=== PATIENT | female | born 1955 ===

== ENCOUNTER 2022-07-25 18:53 | Emergency (ER) | payer MEDICARE, OTHER ==
[~2022-07-25] VITALS: Ht 165.1 cm; Wt 65.8 kg
--- NOTE | 2022-07-25 19:11 | NUR ---
RECEIVING REPORT: 1) c/o of sudden onset of left back pain radiating to the front groin. 2) Seen in [facility]: (i) however, not sure if patient had C/Scan (ii) was informed by MD that patient has probably kidney stones 3) Has been having pain passing urine 4) Was also seen by sole skiver - NAD 5) Patient receives once a week insulin 6) Ambulance: was given Fentalyn and antimetic 7) Pain score reduced from 10 to 0 on arrival. 8) Vitals: BP 149/88, Sat 97% on RA, T98.2, R18 9) PLAN: (i) check labs for kidney function (ii) C/Scan with contrast (iii) Claims no shellfish nor sea food allergies (iv) Claims to not have had contrast before 10) Unable to pass unrine when offered urine cup
[2022-07-25] MEDS ORDERED: METOCLOPRAMIDE HCL 10 MG/2 ML VIAL IV ONE (19:30)
[2022-07-25] MEDS ORDERED: diphenhydrAMINE 50 MG/1 ML VIAL IV ONE (19:30)
[2022-07-25] MEDS ORDERED: diphenhydrAMINE 50 MG/1 ML VIAL ONE (19:32)
[2022-07-25] MEDS ORDERED: METOCLOPRAMIDE HCL 10 MG/2 ML VIAL ONE (19:32)
[2022-07-25 19:33] LABS: HEMATOCRIT 39.6 % (31.2-41.9); MEAN CORPUSCULAR HEMOGLOBIN 29.1 uug (24.7-32.8); MEAN CORPUSCULAR VOLUME 87.4 fL (75.5-95.3); PLATELET COUNT (AUTO) 287 K/uL (179-408)
[2022-07-25 19:45] LABS: CREATININE 0.8 mg/dL (0.6-1.3)
[2022-07-25 19:50] LABS: BILIRUBIN,DIRECT 0.1 mg/dL (0.0-0.2); BILIRUBIN,TOTAL 0.5 mg/dL (0.2-1.0); TOTAL PROTEIN, SERUM 7.7 g/dL (6.4-8.2)
[2022-07-25 20:09] LABS: *BILIRUBIN,URIN NEGATIVE (NEGATIVE); *CLARITY,URINE CLEAR (CLEAR); *COLOR,URINE YELLOW (YELLOW); *KETONES,URINE NEGATIVE (NEGATIVE); *UROBILINOGEN,URINE 0.2 E.U./dl (NORMAL); LEUKOCYTE ESTERASE ,URINE NEGATIVE (NEGATIVE); NITRITE, URINE NEGATIVE (NEGATIVE); UGLUCOSE NEGATIVE (NEGATIVE)
[2022-07-25 20:14] LABS: *BLOOD, URINE TRACE (NEGATIVE)
--- NOTE | 2022-07-25 20:22 | NUR ---
PATIENT RESTING AT THIS TIME, FAMILY REMAINS AT BEDSIDE. UPDATED ON PLAN OF CARE, AWAITING CT SCAN, WILL CONTINUE TO MONITOR.
[2022-07-25 20:26] LABS: BACTERIA,URINE FEW /HPF (NONE SEEN); SQUAMOUS EPITHELIAL CELL,UR FEW /HPF (NONE SEEN); WBC,URINE 0-3 /HPF (0-3)
[2022-07-25] MEDS ORDERED: HYDROMORPHONE 1 MG/1 ML DISP.SYRIN ONE (20:38)
[2022-07-25] MEDS ORDERED: HYDROMORPHONE 1 MG/1 ML DISP.SYRIN IV ONE (20:45)
[2022-07-25] MEDS ORDERED: IV NORMAL SALINE 250 ML IV ONE (20:55)
[2022-07-25] MEDS ORDERED: IOHEXOL 350 100 ML INFUS..BTL ONE (20:55)
[2022-07-25] MEDS ORDERED: SWABABLE VALVE TRANSFER SET EA MC ONE (20:55)
--- NOTE | 2022-07-25 21:06 | NUR ---
Off unit to CT at this time.
--- NOTE | 2022-07-25 21:32 | NUR ---
Returned from CT, placed back on monitor, awaiting CT results. Pain is better at this time.
--- NOTE | 2022-07-25 21:37 | NUR ---
Ambulated to bathroom with family member.
--- NOTE | 2022-07-25 23:21 | NUR ---
Family remains at bedside, MD to talk to paient and family re: wait time for CT results.
--- NOTE | 2022-07-26 01:21 | NUR ---
Patient is sleeping, no s/s of any distress noted, repositions self for comfort, side rails remain up. Patient family member went home will return in few hours.
--- NOTE | 2022-07-26 02:40 | NUR ---
Awake, sitting up in bed, requested water, given. No voiced c/o pain or discomfort at this time.
--- NOTE | 2022-07-26 04:07 | NUR ---
Patient continues to rest without c/o.
--- NOTE | 2022-07-26 05:02 | NUR ---
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 Patient continues to rest without any c/o.
[2022-07-26] MEDS ORDERED: HYDR-3980 PO (05:04)
[2022-07-26] MEDS ORDERED: ONDA4TAB5 PO (05:04)
--- NOTE | 2022-07-26 05:40 | NUR ---
2nd call placed to son Alesia, no answer.
--- NOTE | 2022-07-26 07:08 | NUR ---
Pt. asleep at this time, VSS
--- NOTE | 2022-07-26 07:33 | NUR ---
Pt. in bathroom, doing ADLs
--- NOTE | 2022-07-26 07:51 | NUR ---
Patient discharged to home in stable condition. Written and verbal after care instructions given. Patient verbalizes understanding of instructions. Stressed follow up or return to ER for worsening s/s.
[2022-07-26 07:52] VITALS: BP 122/90
== END 2022-07-26 09:26 | disposition home or self-care (01) ==
LOC: ER 18:57
DX: N20.1 Calculus of ureter (principal); R10.31 Right lower quadrant pain; E11.9 Type 2 diabetes mellitus without complications; E78.5 Hyperlipidemia, unspecified
CPT/HCPCS: 99285; 74178; 96374; 96375; 80076; 80048; 81001; 83690; 85025; 36415; J1200; J2765; Q9967; J1170; A4663; C1758